=== PATIENT | female | born 2000 ===

== ENCOUNTER → 2023-05-04 15:38 | Outpatient (CLI) | payer OTHER, SELFPAY ==
--- NOTE | 2023-05-04 | DI.US.S_ITS ---
PROCEDURE: US PELVIC COMPLETE INDICATIONS: POSITIVE TEST. BLEEDING X 2 DAYS 04/29. TECHNIQUE: Real-time scanning was performed of the pelvic organs, with image documentation. Additional endovaginal scanning was necessary due to incomplete visualization of the adnexal and endometrial structures by transabdominal scanning. COMPARISON: None. FINDINGS: Uterus: Uterus is retroverted and normal in size at 7.7 x 6.9 x 5.0 cm. The myometrium is homogeneous. The endometrium measures 13.1 mm in combined thickness. The endometrium is heterogeneous with hyperechoic nonvascular region seen within the canal. No definite gestational sac or yolk sac visualized. Ovaries: The right ovary measures 3.8 x 1.8 x 2.4 cm, with a calculated ovarian volume of 8.5 cc. The left ovary measures 4.3 x 1.7 x 1.7 cm, with a calculated ovarian volume of 6.5 cc. There is a right adnexal cyst measuring 2.0 x 1.6 x 1.3 centimeters containing thin nonvascular septations. Other: No pathologic free abdominal or pelvic fluid. IMPRESSION: Heterogeneous endometrium measuring up to 13.1 mm in thickness with areas of hyperechoic nonvascular material within the canal, which may represent a clot versus nonvascular retained products of conception. No definite gestational sac or yolk sac identified. Recommend serial beta HCG testing and pelvic ultrasounds. Approved by: Kim Scott M.D. on 05/05/2023 at 11:49
== END ==
PROVIDERS: Referring Provider Advanced Practice Midwife; Visit Provider Advanced Practice Midwife
DX: O36.80X0 Pregnancy with inconclusive fetal viability, not applicable or unspecified (principal)
CPT/HCPCS: 76801; 76830; 76856

== ENCOUNTER → 2023-07-01 08:28 | Outpatient (CLI) | payer OTHER, SELFPAY ==
--- NOTE | 2023-07-01 | DI.US.S_ITS ---
PROCEDURE: US OB <= 14 WEEKS FETUS INDICATIONS: DATING AND VIABILITY OUTSIDE/PRIOR DATING DATA: Last menstrual period (LMP): Unknown. LMP-based estimated date of delivery (ESME): Not applicable. First dating scan (date and location): July 01, 2023. Estimated date of delivery (ESME) from first dating scan: February 10, 2024. TECHNIQUE: Real-time scanning was performed of the fetus and maternal pelvic organs, with image documentation. Endovaginal scanning was also performed to better visualize the fetus and maternal ovaries. COMPARISON: None. FINDINGS: Embryo: Single living intrauterine gestation with estimated sonographic gestational age of approximately 8 weeks and 0 days based off crown-rump length measurement of approximately 1.6 cm. Normal yolk sac. Small perigestational hemorrhage identified measuring approximately 0.7 x 0.4 x 1.1 cm in size. Heart rate: 165 beats per minute. Maternal organs: Ovaries demonstrate probable right-sided hemorrhagic corpus luteal cyst measuring 2.1 x 2.0 x 2.0 cm . IMPRESSION: Single living intrauterine gestation with estimated sonographic gestational age of approximately 8 weeks and 0 days based off crown-rump length measurement. Estimated dated delivery is approximately February 10, 2024 Small perigestational bleed. Probable 2.1 cm hemorrhagic corpus luteal cyst on the right. We strive to produce accurate, complete, and clear reports of imaging services. To assist us in improving patient care, this report was composed using standard report templates and voice recognition software. Therefore, it may contain abnormal punctuation, insertions and/or omissions. Occasional wrong-word or sound-alike substitutions may occur. Though we review the report and make efforts to correct it, we do recommend that the report be read carefully in proper context to recognize any text inaccuracies. Dictated by: Arpan Hinojosa M.D. on 07/01/2023 at 11:22 Approved by: Arpan Hinojosa M.D. on 07/01/2023 at 11:25
== END ==
PROVIDERS: Referring Provider Advanced Practice Midwife; Visit Provider Nurse Practitioner Obstetrics & Gynecology
DX: O26.851 Spotting complicating pregnancy, first trimester (principal); Z3A.08 8 weeks gestation of pregnancy
CPT/HCPCS: 76801; 76817; 93976

== ENCOUNTER → 2023-09-22 07:46 | Outpatient (CLI) | payer OTHER, SELFPAY ==
--- NOTE | 2023-09-22 | DI.US.S_ITS ---
PROCEDURE: US OB >= 14 WEEKS FETUS INDICATIONS: ANATOMY OUTSIDE/PRIOR DATING DATA: Last menstrual period (LMP): Unknown. LMP-based estimated date of delivery (ESME): None known. First dating scan (date and location): 07/01/2023. Estimated date of delivery (ESME) from first dating scan: 02/10/2024. The calculations are made using the ultrasound ESME of 02/10/2024. TECHNIQUE: Real-time scanning was performed of the fetus, with image documentation and biometric measurements. Endovaginal scanning: Not performed. COMPARISON: [facility], OB <= 14 WEEKS FETUS, 07/01/2023, 9:01. FINDINGS: Exam is technically difficult due to lie. General: A single living intrauterine gestation is present. Presentation: Vertex. Placenta: Placental position is anterior, without previa. Amniotic fluid index: 12.6 cm, normal range is 5-24 cm. Single deepest vertical pocket is 3.5 cm. heart rate: 140 beats per minute. Maternal cervical canal: 3.2 cm long. Normal lower limit is 2.5 cm. biometrics: Biparietal diameter: 4.4 cm, 19 weeks 2 days Head circumference: 16.8 cm, 19 weeks 3 days Abdominal circumference: 14.1 cm, 19 weeks 3 days Femur length: 3.1 cm, 19 weeks 5 days Clinically estimated gestational age: 19 weeks 6 days Composite gestational age from present scan: 19 weeks 3 days Estimated weight and percentile: 301 g, 30th percentile Anatomic survey: Neuro: Ventricles are non-dilated at less than 10 mm. Cisterna magna is normal at 3-11 mm. Cerebellum is normal in size and morphology. Nuchal skin fold: Normal at less than 6 mm between 14-21 weeks gestational age. Face: facial profile is normal. Nose and lips are not well seen. Spine: No evidence for spina bifida. Heart: 4-chambered heart is present LVOT appears normal. RVOT is not well seen. Diaphragm: Diaphragm is intact. Stomach: Left-sided stomach is present. Kidneys: Not well seen. Cord: 3-vessel cord has orthotopic insertion. Bladder: Normal in size. Extremities: Left lower extremity is not well seen. IMPRESSION: 1. Wade living intrauterine at 19 weeks 3 days based on today's ultrasound. Fetus is in the 30th percentile for weight. 2. Normal placenta and amniotic fluid. 3. Multiple structures not seen due to lie. The RV OT, nose and lips, left lower extremity, in kidneys are not well seen. Visualized anatomy is normal anatomic survey. Recommend follow-up OB ultrasound. We strive to produce accurate, complete, and clear reports of imaging services. To assist us in improving patient care, this report was composed using standard report templates and voice recognition software. Therefore, it may contain abnormal punctuation, insertions and/or omissions. Occasional wrong-word or sound-alike substitutions may occur. Though we review the report and make efforts to correct it, we do recommend that the report be read carefully in proper context to recognize any text inaccuracies. Dictated by: Michael Reyes M.D. on 09/22/2023 at 10:54 Approved by: Michael Reyes M.D. on 09/22/2023 at 11:04
== END ==
LOC: US 07:47
PROVIDERS: Referring Provider Nurse Practitioner Obstetrics & Gynecology; Visit Provider Nurse Practitioner Obstetrics & Gynecology
DX: Z34.92 Encounter for supervision of normal pregnancy, unspecified, second trimester (principal); Z3A.19 19 weeks gestation of pregnancy
CPT/HCPCS: 76811

== ENCOUNTER → 2023-10-11 06:43 | Outpatient (CLI) | payer OTHER, SELFPAY ==
--- NOTE | 2023-10-11 06:45 | DI.US.S_ITS ---
PROCEDURE: US OB LIMITED INDICATIONS: FOLLOW UP ANATOMY OUTSIDE/PRIOR DATING DATA: Last menstrual period (LMP): Unknown. LMP-based estimated date of delivery (ESME): Unknown. First dating scan (date and location): 07/01/2023. Estimated date of delivery (ESME) from first dating scan: 02/10/2024. The calculations are made using the ultrasound ESME of 02/10/2024. TECHNIQUE: Real-time scanning was performed of the fetus, with image documentation. Endovaginal scanning: Not performed COMPARISON: [facility], , US OB >= 14 WEEKS FETUS, 09/22/2023, 8:18 FINDINGS: A single living intrauterine gestation is present. Presentation: Breech. Placenta: Placental position is anterior, without previa. Amniotic fluid index: 15.0 cm, normal range is 5-24 cm. Single deepest vertical pocket is 4.2 cm. heart rate: 131 beats per minute. Maternal cervical canal: 3.3 cm long. Normal lower limit is 2.5 cm. Estimated gestational age from initial scan: 22 weeks, 4 days. The right ventricular outflow tract, nose/lips, left lower extremity and kidneys are within normal limits. IMPRESSION: 1. Single live intrauterine consistent with 22 weeks and 4 days. 2. Follow-up anatomic survey is within normal limits. Dictated by: Shar Mims M.D. on 10/11/2023 at 11:14 Approved by: Shar Mmis M.D. on 10/11/2023 at 11:17
== END ==
LOC: US 06:44
PROVIDERS: Referring Provider Nurse Practitioner Obstetrics & Gynecology; Visit Provider Nurse Practitioner Obstetrics & Gynecology
DX: Z34.92 Encounter for supervision of normal pregnancy, unspecified, second trimester (principal); Z3A.22 22 weeks gestation of pregnancy
CPT/HCPCS: 76815

== ENCOUNTER → 2023-11-22 07:52 | Outpatient (CLI) | payer OTHER, SELFPAY ==
[2023-11-22 09:09] LABS: Glucose Fasting 78 mg/dL (70-100)
[2023-11-22 11:00] LABS: Glucose 1 Hour 126 mg/dL (70-170)
[2023-11-22 11:23] LABS: Glucose Tol Interpretation INTERPRETATION
[2023-11-22 11:24] LABS: Glucose 2 Hour 129 mg/dL (70-140)
[2023-11-22 13:03] LABS: Glucose 3 Hour 111 mg/dL (70-115)
== END ==
PROVIDERS: Referring Provider Nurse Practitioner Obstetrics & Gynecology; Visit Provider Nurse Practitioner Obstetrics & Gynecology
DX: Z13.1 Encounter for screening for diabetes mellitus (principal); Z86.32 Personal history of gestational diabetes
CPT/HCPCS: 36415; 82951; 82952

== ENCOUNTER → 2024-01-06 07:45 | Outpatient (CLI) | payer OTHER, SELFPAY ==
--- NOTE | 2024-01-06 | DI.US.S_ITS ---
PROCEDURE: US OB LIMITED INDICATIONS: Supervision of high risk , unspecified, third trime OUTSIDE/PRIOR DATING DATA: Last menstrual period (LMP): Unknown. LMP-based estimated date of delivery (ESME): Not applicable. First dating scan (date and location): 07/01/2023. Estimated date of delivery (ESME) from first dating scan: 02/10/2024. The calculations are made using the sonographic ESME of 02/10/2024. TECHNIQUE: Real-time scanning was performed of the fetus, with image documentation. Endovaginal scanning: Not performed COMPARISON: [facility], OB LIMITED, 10/11/2023, 7:11. FINDINGS: A single living intrauterine gestation is present. Presentation: Vertex. Placenta: Placental position is anterior, without previa. Amniotic fluid index: 14.4 cm, normal range is 5-24 cm. Single deepest vertical pocket is 4.7 cm. heart rate: 136 beats per minute. Maternal cervical canal: 3.4 cm long. Normal lower limit is 2.5 cm. Estimated gestational age from initial scan: 35 weeks 0 days. BPP 8 of 8. Umbilical artery waveform and SD ratios are normal. IMPRESSION: Single living intrauterine at 35 weeks 0 days, ESME of 02/10/2024. BPP 8 of 8. Normal umbilical artery waveforms. Dictated by: Ryan Reeves M.D. on 01/06/2024 at 14:39 Approved by: Ryan Reeves M.D. on 01/06/2024 at 14:40
== END ==
PROVIDERS: Referring Provider Nurse Practitioner Obstetrics & Gynecology; Visit Provider Nurse Practitioner Obstetrics & Gynecology
DX: O09.93 Supervision of high risk pregnancy, unspecified, third trimester (principal); Z3A.35 35 weeks gestation of pregnancy
CPT/HCPCS: 76815

== ENCOUNTER → 2024-01-16 16:53 | Outpatient (CLI) | payer OTHER, SELFPAY ==
--- NOTE | 2024-01-16 16:54 | DI.US.S_ITS ---
PROCEDURE: US OB LIMITED INDICATIONS: GROWTH W/LUDMILA OUTSIDE/PRIOR DATING DATA: Last menstrual period (LMP): Unknown LMP-based estimated date of delivery (ESME): Unknown First dating scan (date and location): 07/01/2023. Estimated date of delivery (ESME) from first dating scan: 02/10/2024. The calculations are made using the ultrasound ESME of 02/10/2024. TECHNIQUE: Real-time scanning was performed of the fetus, with image documentation and biometric measurements. COMPARISON: [facility], , OB LIMITED, 01/06/2024, 7:54. FINDINGS: General: A single living intrauterine gestation is present. Presentation: Vertex. Placenta: Placental position is anterior , without previa. Amniotic fluid index: 8 cm, normal range is 5-24 cm. Single deepest vertical pocket is 3 cm. heart rate: 149 beats per minute. Maternal cervical canal: 2.8 cm long. Normal lower limit is 2.5 cm. biometrics: Biparietal diameter: 8.5 cm 34 weeks 1 day Head circumference: 31.8 cm 35 weeks 5 days Abdominal circumference: 30.7 cm 34 weeks 4 days Femur length: 6.9 cm 35 weeks 4 days Composite gestational age from initial scan: 36 weeks 3 days Composite gestational age from present scan: 35 weeks 0 days Estimated weight and percentile: 2560 g 17th percentile Other: Not applicable. IMPRESSION: Single live intrauterine with gestational age today of 35 weeks 0 days. LUDMILA is within normal limits. We strive to produce accurate, complete, and clear reports of imaging services. To assist us in improving patient care, this report was composed using standard report templates and voice recognition software. Therefore, it may contain abnormal punctuation, insertions and/or omissions. Occasional wrong-word or sound-alike substitutions may occur. Though we review the report and make efforts to correct it, we do recommend that the report be read carefully in proper context to recognize any text inaccuracies. Dictated by: Blanca De La Rosa M.D. on 01/17/2024 at 8:44 Approved by: Blanca De La Rosa M.D. on 01/17/2024 at 8:46
== END ==
PROVIDERS: Referring Provider Advanced Practice Midwife; Visit Provider Advanced Practice Midwife
DX: O09.93 Supervision of high risk pregnancy, unspecified, third trimester (principal); Z3A.35 35 weeks gestation of pregnancy
CPT/HCPCS: 76815

== ENCOUNTER → 2024-01-30 13:43 | Outpatient (CLI) | payer OTHER, SELFPAY ==
--- NOTE | 2024-01-30 13:44 | DI.US.S_ITS ---
PROCEDURE: US OB BIOPHYSICAL PROFILE INDICATIONS: BPP OUTSIDE/PRIOR DATING DATA: Last menstrual period (LMP): Undo known. LMP-based estimated date of delivery (ESME): Un known. First dating scan (date and location): 07/01/2023. Estimated date of delivery (ESME) from first dating scan: 02/10/2024. The calculations are made using the ultrasound ESME of 02/10/2024. TECHNIQUE: Real-time scanning was performed of the fetus for biophysical profile, with image documentation. Color and pulse Doppler interrogation was also performed of the umbilical artery near its insertion into the placenta. COMPARISON: [facility], OB LIMITED, 01/16/2024, 17:00. FINDINGS: General: A single living intrauterine gestation is present. Presentation: Anterior. Placenta: Placental position is vertex , without previa. Amniotic fluid index: 9.3 cm, normal range is 5-24 cm. Single deepest vertical pocket is 3.2 cm. heart rate: 128 beats per minute. Maternal cervical canal: Not well seen cm long. Normal lower limit is 2.5 cm. Estimated gestational age from initial scan: 35 weeks 3 days. Biophysical profile: Tone: 2 points. Movement: 2 points. Respiration: 2 points. Largest pocket of fluid: 2 points. Umbilical artery Doppler: 2.2, 2.6, 2.4 IMPRESSION: Single live intrauterine with gestational age measuring 35 weeks 3 days. [facility] 04/19 We strive to produce accurate, complete, and clear reports of imaging services. To assist us in improving patient care, this report was composed using standard report templates and voice recognition software. Therefore, it may contain abnormal punctuation, insertions and/or omissions. Occasional wrong-word or sound-alike substitutions may occur. Though we review the report and make efforts to correct it, we do recommend that the report be read carefully in proper context to recognize any text inaccuracies. Dictated by: Blanca De La Rosa M.D. on 01/30/2024 at 21:19 Approved by: Blanca De La Rosa M.D. on 01/30/2024 at 21:21
== END ==
PROVIDERS: Referring Provider Nurse Practitioner Obstetrics & Gynecology; Visit Provider Nurse Practitioner Obstetrics & Gynecology
DX: O09.93 Supervision of high risk pregnancy, unspecified, third trimester (principal); Z3A.35 35 weeks gestation of pregnancy
CPT/HCPCS: 76819; 76820

== ENCOUNTER 2024-02-07 14:26 | Outpatient (CLI) | payer OTHER, SELFPAY ==
--- NOTE | 2024-02-07 14:43 | DI.US.S_ITS ---
PROCEDURE: US OB LIMITED INDICATIONS: LUDMILA OUTSIDE/PRIOR DATING DATA: Last menstrual period (LMP): Unknown. LMP-based estimated date of delivery (ESME): Not applicable. First dating scan (date and location): 07/01/2023. Estimated date of delivery (ESME) from first dating scan: 02/10/2024. The calculations are made using the sonographic ESME of 02/10/2024. TECHNIQUE: Real-time scanning was performed of the fetus, with image documentation. Endovaginal scanning: Not performed COMPARISON: [facility], OB LIMITED, 01/16/2024, 17:00. FINDINGS: A single living intrauterine gestation is present. Presentation: Vertex. Placenta: Placental position is anterior fundus, without previa. Amniotic fluid index: 5.3 cm, normal range is 5-24 cm. Single deepest vertical pocket is 3.0 cm. heart rate: 139 beats per minute. Maternal cervical canal: Not visualized Clinically estimated gestational age: 39 weeks 4 days IMPRESSION: Single living intrauterine at 39 weeks 4 days, ESME of 02/10/2024. Amniotic fluid index of 5.3 centimeters, the lower limits of normal. Deepest pocket measures 3 centimeter. Dictated by: Ryan Reeves M.D. on 02/07/2024 at 15:40 Approved by: Ryan Reeves M.D. on 02/07/2024 at 15:41
== END 2024-02-07 15:15 | disposition home or self-care (01) ==
LOC: LABOR 15:09 → OB 02-08 11:43
PROVIDERS: Referring Provider Nurse Practitioner Obstetrics & Gynecology; Visit Provider Nurse Practitioner Obstetrics & Gynecology
DX: O41.03X0 Oligohydramnios, third trimester, not applicable or unspecified (principal); O47.1 False labor at or after 37 completed weeks of gestation; Z3A.39 39 weeks gestation of pregnancy
CPT/HCPCS: 59025; 76815; G0378; G0379

== ENCOUNTER 2024-02-09 10:54 | Outpatient (CLI) | payer OTHER, SELFPAY ==
--- NOTE | 2024-02-09 11:07 | DI.US.S_ITS ---
PROCEDURE: US OB LIMITED INDICATIONS: Low amniotic fluid index OUTSIDE/PRIOR DATING DATA: Last menstrual period (LMP): Unknown LMP-based estimated date of delivery (ESME): Unknown. First dating scan (date and location): 07/01/2023. Estimated date of delivery (ESME) from first dating scan: 02/10/2024. The calculations are made using the working ESME of working 02/10/2024. TECHNIQUE: Real-time scanning was performed of the fetus, with image documentation and biometric measurements. Endovaginal scanning: No COMPARISON: [facility], OB LIMITED, 02/07/2024, 15:07. FINDINGS: General: A single living intrauterine gestation is present. Presentation: Vertex. Placenta: Placental position is anterior fundal , without previa. Normal >2 cm. Low lying is <2 cm to the edge. Previa covers the internal os. Amniotic fluid index: 5.9 cm, previously 5.3 cm. Single deepest vertical pocket is 2.6 cm. heart rate: 137 beats per minute. Maternal cervical canal: Nonvisualized Clinically estimated gestational age: 39 week 6 day Other: Not applicable. IMPRESSION: Single live intrauterine consistent with 39 week 6 day gestation. Stable oligohydramnios. LUDMILA 5.9 cm, previously 5.3 cm Approved by: Solitario Douglass M.D. on 02/09/2024 at 12:20
== END 2024-02-09 11:45 | disposition home or self-care (01) ==
LOC: LABOR 11:12 → OB 02-13 08:12
PROVIDERS: Referring Provider Nurse Practitioner Obstetrics & Gynecology; Visit Provider Nurse Practitioner Obstetrics & Gynecology
DX: O41.03X0 Oligohydramnios, third trimester, not applicable or unspecified (principal); Z3A.39 39 weeks gestation of pregnancy
CPT/HCPCS: 59025; 76815; G0378; G0379

== ENCOUNTER → 2024-02-10 12:16 | Outpatient (CLI) | payer OTHER, SELFPAY ==
--- NOTE | 2024-02-10 12:17 | DI.US.S_ITS ---
PROCEDURE: US OB LIMITED INDICATIONS: BPP AND GROWTH OUTSIDE/PRIOR DATING DATA: Last menstrual period (LMP): Unknown. LMP-based estimated date of delivery (ESME): Unknown. First dating scan (date and location): 07/01/2023. Estimated date of delivery (ESME) from first dating scan: 02/10/2024. The calculations are made using the ultrasound ESME of 02/10/2024. TECHNIQUE: Real-time scanning was performed of the fetus, with image documentation and biometric measurements. Biophysical profile was also obtained. Endovaginal scanning: Not performed COMPARISON: [facility], OB LIMITED, 02/09/2024, 11:34. FINDINGS: General: A single living intrauterine gestation is present. Presentation: Vertex. Placenta: Placental position is anterior fundal , without previa. Amniotic fluid index: 6.9 cm, normal range is 5-24 cm. Single deepest vertical pocket is 3.8 cm. heart rate: 132 beats per minute. Maternal cervical canal: Not well seen biometrics: Biparietal diameter: 8.9 cm, 35 weeks 6 days Head circumference: 32 cm, 36 weeks 0 days Abdominal circumference: 32.2 cm, 36 weeks 1 day Femur length: 7.0 cm, 35 weeks 6 days Clinically estimated gestational age: 40 weeks 0 days Composite gestational age from present scan: 36 weeks 0 days Estimated weight and percentile: 2833 g, 4th percentile Biophysical profile: Tone: 0 points. Movement: 0 points. Respiration: 2 points. Largest pocket of fluid: 2 points. IMPRESSION: Single live intrauterine consistent with 36 weeks and 0 days based on today's scan, clinically estimated gestational age of 40 weeks and 0 days. Estimated weight is in the 4th percentile. Biophysical profile 4/8. Amniotic fluid index of 6.9 cm. Findings were communicated to the ordering provider by the charge histotechnologist. We strive to produce accurate, complete, and clear reports of imaging services. To assist us in improving patient care, this report was composed using standard report templates and voice recognition software. Therefore, it may contain abnormal punctuation, insertions and/or omissions. Occasional wrong-word or sound-alike substitutions may occur. Though we review the report and make efforts to correct it, we do recommend that the report be read carefully in proper context to recognize any text inaccuracies. Dictated by: Shar Mims M.D. on 02/10/2024 at 15:38 Approved by: Shar Mims M.D. on 02/10/2024 at 15:41
== END ==
PROVIDERS: Referring Provider Nurse Practitioner Obstetrics & Gynecology; Visit Provider Nurse Practitioner Obstetrics & Gynecology
DX: O09.93 Supervision of high risk pregnancy, unspecified, third trimester (principal); Z3A.36 36 weeks gestation of pregnancy
CPT/HCPCS: 76815; 76819

== ENCOUNTER 2024-02-10 18:25 | Inpatient (IN) | payer OTHER, SELFPAY ==
--- NOTE | 2024-02-10 19:01 | PM.OBHP.1 ---
OB HPI Date/Time Date of admission: 02/10/24 Date Patient Seen: 02/10/24 Time Patient Seen: 18:45 History of Present Condition Chief complaint: INDUCTION : 2 Para: 0 Estimated Date of Delivery: 02/10/24 Estimated Gestational Age (weeks): 40w0d Narrative: Kathy Morales is a 23 year old female at 40w2d by 8 week ultrasound. 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 No medication was recommended or required and arrhythmias Has been having weekly antepartum testing since 32 weeks. Kathy is not excited about induction of labor; was hoping for spontaneous labor and unmedicated but is also concerned about baby this week after low normal LUDMILA 3 days ago (5.3 cm) and growth ultrasound today showing baby is in 4th %ile, down from 32% at 32 weeks and 17% at 36 weeks. LUDMILA today was 6.9 cm. Kathy is here today with her , Ross. They are looking forward to meeting their daughter, Newton Gillis. Indications Indication for induction OB: intra-uterine growth restriction (4th %ile on ultrasound on ESME down from 17th%ile at 36w0d) History of Present care: good care, initiated at week # (8), number of visits (13) and pounds weight gain (37) Dating criteria: based on 1st trimester US only Ultrasounds: normal 1st trimester US, normal mid trimester US and abnormal US findings (re: growth as stated above) Abnormal ultrasound findings: 30%ile at anatomy scan, 32%ile at 32 weeks, 17%ile at 36 weeks, 4%ile at 40 weeks. Obstetrical complications: none Medical complications: cardiovascular (arrhythmia, evaluated by cardiology and M) Preadmission Labs Blood type: B (+) positive -: Antibody screen: negative, Cystic fibrosis screen: unknown, GBS status: negative, HBsAG: negative, HIV: negative, HSV 1: negative, HSV 2: negative and RPR/VDLR: negative -: Chlamydia screen: not detected and Gonorrhea screen: not detected -: Rubella: immune and Varicella: immune HCT: 11.7 (at 27w) HCAB: negative PAP: Normal (10/2022) Sequential screen: Negative 1 hr GTT: 150 3 hr GTT: 1 hr (126), 2 hr (129) and 3 hr (111) Fasting blood glucose: 78 Prior (ies) History: summer Evaluation Evaluation Baseline heart rate: 155 Variability: Moderate (11-25) monitor accelerations: Present Monitor Decelerations: Absent Contraction Frequency (minutes): 10 (irregular, painless) Uterine Contraction Intensity: Mild Category of Tracing: Reactive Status: Category l Dilation (cm): 1 Effacement (%): 70 Dilation: 1-2 cm Effacement: 60-70% station: -1 Position of cervix: mid Consistency: soft Blakely score: 8 Comments: FHR possibly tachycardic/Cat 2 on admission ([id number]); possibly having lots of accels. Definitively Cat 1 after 1953 time. 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 OB Exam Vital signs Blood Pressure: 126/83 Pulse Rate: 93 Respiratory Rate: 16 Temperature: 97.7 F HENMT Head: normal to inspection Resp Effort & Inspection: normal respiratory effort Auscultation: clear to auscultation bilaterally Cardio Rate: regular rate Rhythm: regular rhythm Heart Sounds: S1 normal and S2 normal Extremities Lower extremity: Yes normal to inspection GI Inspection: normal to inspection (Gravid uterus) Palpation: Yes other (Fetus in NAKUL position) Presentation: vertex (by cervical exam) Estimated Weight (lbs): 6 (6#4oz by today's ultrasound. 7 lbs by Benigno's.) Objective Labs 02/10/24 19:05 Assessment and Plan Assessment and Plan Assessment and Plan narrative: at 40w0d by 8 week ultrasound Small for gestational age by growth ultrasound today GBS neg Rh positive FHR Cat 1 Admit to L&D for cervical ripening/induction of labor. Reviewed process in detail, answered questions. Kahn bulb placed on 2nd attempt approx 1930 with speculum and ring forceps. Consider buccal misoprostol OR low-dose pitocin in 2-4 hours. Recommend hydration.
[2024-02-10 19:15] LABS: Add Manual Diff / Slide Review NO; Basophils Absolute Auto 0 /uL (0-100); Basophils Percent Auto 0.3 % (0-2); Eosinophils Absolute Auto 200 /uL (0-450); Eosinophils Percent Auto 1.7 % (2-4); Hematocrit 36.2 % (36-46); Hemoglobin 12.3 g/dL (12.0-16.0); Lymphocytes Absolute Auto 1500 /uL (1100-4500); Lymphocytes Percent Auto 12.5 % (25-40); Mean Corpuscular HGB Conc 33.9 % (30-36); Mean Corpuscular Volume 91.2 fL (80-100); Monocytes Absolute Auto 800 /uL (0-900); Monocytes Percent Auto 6.6 % (3-14); Neutrophils Absolute Auto 9200 /uL (1500-7000); Neutrophils Percent Auto 78.9 % (50-75); Platelet Count 277 X10^3/uL (150-400); Red Blood Cell Count 3.97 X10^6/uL (4.0-5.2); Red Cell Distribution Width 13.4 % (11.6-14.8); White Blood Cell Count 11.7 X10^3/uL (4.5-11.0)
[2024-02-10 19:56] VITALS: BP 126/83
[2024-02-10 20:09] VITALS: BP 126/83; PULSE 93; RESP 16; TEMP 36.5
--- NOTE | 2024-02-11 07:30 | PM.OBPNLAB ---
Date/Time Date Patient Seen: 03/12/24 Time Patient Seen: 07:30 Pain Control Pain control: tolerating well Comments: Kathy had some intense contractions overnight, coped by sitting on the ball. Then got some sleep, ate breakfast. Pelvic Exam Amniotic membrane status: Intact Comments: Criss fell out when RN pulled on it just after 0700. Cervical exam not performed at this time. Reviewed overnight FHR; Baseline ranged from 120-150 with accelerations, moderate variability and the occasional mild variable. Nurse had been instructed to give buccal misoprostol 50 mcg x 1 or start pitocin overnight. CNM did not receive call with update regarding change of plans. Contractions Contraction frequency (min): 3 (irregular in timing and intensity) Contraction intensity: Mild Status status: Category l Heart Rate Baseline: 135 Monitor Accelerations: Present Monitor Decelerations: Absent Monitor Variability: Moderate Assessment and Plan Assessment: induction ongoing Comments: at 40w1d by 8 week ultrasound Induction for SGA FHR Cat 1 Initiate pitocin induction Anticipate NSVB.
[2024-02-11] MEDS: OXYTOCIN PREMIX 30 UNIT/500 ML PLAST..BAG IV (08:26)
[2024-02-11] MEDS: LACTATED RINGERS 1,000 ML 100 ML IV (08:27)
[2024-02-11] MEDS: ONDANSETRON 4 MG/2 ML INJ IV (09:04)
--- NOTE | 2024-02-11 12:19 | PM.OBPNLAB ---
Date/Time Date Patient Seen: 03/12/24 Time Patient Seen: 11:30 Pain Control Pain control: tolerating well (working hard.) Comments: Kathy has been working through contractions, and they became a lot more intense after SROM, clear fluid, at 1115. Well supported by RN, FOB (Ross). CNM at bedside. Pelvic Exam Dilation (cm): 6 Effacement (%): 100 station: 0 Amniotic membrane status: Ruptured Comments: ROM, clear fluid, approx 1115. Contractions Pitocin rate (mU/min): 11 Contraction frequency (min): 3 (2-4) Contraction duration (min): 1 Contraction pattern: Irregular Contraction intensity: Mild Status status: Category ll Heart Rate Baseline: 130 Monitor Accelerations: Present Monitor Decelerations: Variable (mild) Monitor Variability: Moderate Assessment and Plan Assessment: active labor Plan: continuous present management Comments: in active labor IOL for SGA at term FHR Cat 2 Pitocin turned down to 8 and then 6. Recommend getting in tub for labor support. Anticipate NSVB.
--- NOTE | 2024-02-11 13:15 | PM.OBPNLAB ---
Date/Time Date Patient Seen: 03/12/24 Time Patient Seen: 13:15 Pain Control Pain control: tolerating well (was asking for epidural; requested exam. Declined epidural with exam results. ) Comments: Kathy in tub; requesting pain medication. RN offered exam, she accepted. After exam, decided okay to continue with labor. Returned to room, hands & knees on CUB, feeling urge to push. Pelvic Exam Dilation (cm): 9 Effacement (%): 100 station: +1 Amniotic membrane status: Ruptured Contractions Contraction intensity: Mild Status status: Category l Heart Rate Baseline: 130 Monitor Accelerations: Present Monitor Decelerations: Absent (but unsure during difficulty monitoring [id number] and [id number]. ) Monitor Variability: Moderate Comments: Difficult to monitor/hand holding in tub. Assessment and Plan Assessment: active labor Comments: in active labor at term IOL for SGA FHR Cat 1 Discontinue pitocin after cervical exam. Intermittent monitoring planned after 30 minutes. Coached Kathy to push as her body desires. Anticipate NSVB.
--- NOTE | 2024-02-11 14:56 | PM.OBPRVD ---
Events: Other (SGA diagnosis on ESME) Labor & Delivery Delivery date: 02/11/24 Intrapartal Events: Precipitous Labor < 3 hours Cervical ripening method: per Kahn bulb protocol Induction method: per pitocin protocol Delivery monitor: external FHT Route of delivery: L&D Laceration Description: None Quantitative Blood Loss: 453 Anesthesia Type: None Narrative: Labor progressed quickly. Kathy felt the spontaneous urge to push after returning to the room from the tub. She pushed effectively for a 54 min 2nd stage, first in hands and knees and then on her right side. FHR was Cat 1 and then reassuring by intermittent auscultation throughout 2nd stage. NSVB of baby at 1402, OA, shoulders delivered easily after restitution to MICHAELA with anterior nuchal hand delivered just after the shoulder. Terminal meconium noted at delivery. Baby was placed on maternal abdomen when Kathy was ready to receive her. Apgars 8/9. They remained skin to skin while cord was cut and placenta was delivered. Pitocin started after cord cut at 334 ml/min. Placenta delivered spontaneously with maternal efforts and appeared to be intact. 3 vessel cord clamped and cut by Ross at 10 minutes of life after cord pulsing had slowed. Cord blood collected for blood typing. Perineum inspected and found to be intact. Shallow periurethral laceration noted on left. Blood loss measured and estimated loss is 453 mL. Mom and baby left stable and is being initiated. Kathy is happy she had an unmedicated . Kathy & Ross are thrilled to meet their baby girl, Newton Gillis. Kat REDD, CNM, IBCLC Baby 1: gender: Female Presentation: vertex Position: Right Occiput Anterior Placenta delivery description: Spontaneous Cord Vessel Description: 3 Vessels score (1 min): 8 score (5 min): 9 weight: 3.199 kg Plan for aftercare: Routine care
[2024-02-11] MEDS: IBUPROFEN 600 MG TABLET PO ×2 (16:09→23:26)
[2024-02-12] MEDS: IBUPROFEN 600 MG TABLET PO (08:07)
[2024-02-12 09:47] VITALS: BP 104/70; PULSE 70; RESP 16; TEMP 36.8
--- NOTE | 2024-02-12 10:46 | P.DS_ITS ---
Discharge Providers Provider Date of admission: 02/10/24 18:25 Discharge Date: 02/12/24 Primary care physician: Hyacinth Post CNM Consults: 02/10/24 18:35 Consult to Anesthesiology Urgent Comment: Consulting Provider: Anesthesiologist Reason for consultation: Epidural Has provider been notified: No 02/12/24 14:31 Consult to Account Consultant Routine Comment: Discharge provider: Hyacinth Post CNM Summary Hospital Course Date Patient Seen: 02/12/24 Time Patient Seen: 10:53 Diagnoses: O80 Hospital Course: PPD1: Stable s/p NSVB. IOL of FGR progressed well with Kahn balloon and pitocin. Voiding, ambulating and independently wit a nipple shield. Vaginal bleeding is light without clots. Tolerating a general diet. Pain is well controlled with PO medication, declines Rx for ibuprofen. Packed up and eager for discharge to home this morning. Planned follow-up with IBCLC tomorrow. Peripartum Data Delivery Method: Natural Vaginal Laceration Description: None Episiotomy description: None 1: Gender: Female Disposition of : home Discharge Diagnosis (1) Encounter for full-term uncomplicated delivery: Status: Acute Problem Details: Routine PP course Status at Discharge Cognitive/behavioral status at discharge: oriented Functional status at discharge: independent ambulation Overall status at discharge: patient is progressing back to baseline Time Spent with Patient Time attestation: Total time spent providing and/or coordinating discharge services: Objective Labs 02/10/24 19:05 Exam Vital Signs (past 8 hours): - 02/12/24 09:47 Temperature 98.3 F Pulse Rate 70 Respiratory Rate 16 Blood Pressure 104/70 Discharge Plan Discharge Plan Patient Disposition: Home Discharge orders & Medications Prescriptions: No Action No Known Home Medications Follow up/Referrals: Hyacinth Post CNM [Primary Care Provider] - (Please check your email for a 2 week telehealth and a 6 week visit with your midwives. ) Diet/Activity/Treatments Diet: Diet as Tolerated and Regular Activity: bed rest x 2 weeks, pelvic rest x 6 weeks Skin/Wound/Dressing Care Report to your healthcare provider any signs of infection, such as:: chills, fever, increased pain, unusual drainage and unusual redness Visit Report/Discharge Packet Instructions: DI for Depression Stand Alone Forms: Discharge: Care, Patient Portal/API, Stroke Signs & Symptoms Discharge Data Primary Care Provider: Hyacinth Post Attending Provider: Hyacinth Post Admit Date/Time: 02/10/24 18:25
== END 2024-02-12 12:15 | disposition home or self-care (01) | DRG 807 ==
PROVIDERS: Advanced Practice Midwife; Admitting Provider Nurse Practitioner Obstetrics & Gynecology; PCP Nurse Practitioner Obstetrics & Gynecology; Referring Provider Nurse Practitioner Obstetrics & Gynecology; Visit Provider Nurse Practitioner Obstetrics & Gynecology
DX: O99.42 Diseases of the circulatory system complicating childbirth (principal); Z37.0 Single live birth; O76 Abnormality in fetal heart rate and rhythm complicating labor and delivery; O36.5930 Maternal care for other known or suspected poor fetal growth, third trimester, not applicable or unspecified; Z3A.40 40 weeks gestation of pregnancy; O09.93 Supervision of high risk pregnancy, unspecified, third trimester; Z3A.36 36 weeks gestation of pregnancy
CPT/HCPCS: 36415; 59050; 76815; 76819; 85025; 86850; 86900; 86901; G0378; G0379; J2405; J2590